=== PATIENT | male | born 1960 | race Caucasian/White ===

== ENCOUNTER 2022-12-22 09:45 | Outpatient (REF) | payer MEDICARE, MEDICAID, SELFPAY | END 2022-12-22 09:46 | disposition home or self-care (01) | LOC: HO.BBR 09:45 | PROVIDERS: Visit Provider Internal Medicine Hematology & Oncology | DX: Z13.89 Encounter for screening for other disorder (principal) ==

== ENCOUNTER 2022-12-30 13:50 | Outpatient (REF) | payer MEDICARE, MEDICAID, SELFPAY | END 2022-12-30 13:51 | disposition home or self-care (01) | LOC: HO.BBR 13:50 | PROVIDERS: Visit Provider Internal Medicine Hematology & Oncology | DX: Z13.89 Encounter for screening for other disorder (principal) ==

== ENCOUNTER 2023-01-09 13:02 | Outpatient (REF) | payer MEDICARE, MEDICAID, SELFPAY | END 2023-01-09 13:03 | disposition home or self-care (01) | LOC: HO.BBR 13:02 | PROVIDERS: Visit Provider Internal Medicine Hematology & Oncology | DX: Z13.89 Encounter for screening for other disorder (principal) ==

== ENCOUNTER 2023-01-23 13:00 | Outpatient (REF) | payer MEDICARE, MEDICAID, SELFPAY | END 2023-01-23 13:01 | disposition home or self-care (01) | LOC: HO.BBR 13:00 | PROVIDERS: Visit Provider Internal Medicine Hematology & Oncology | DX: Z13.89 Encounter for screening for other disorder (principal) ==

== ENCOUNTER 2023-02-07 10:55 | Outpatient (REF) | payer MEDICARE, MEDICAID, SELFPAY | END 2023-02-07 10:56 | disposition home or self-care (01) | LOC: HO.BBR 10:55 | PROVIDERS: Visit Provider Internal Medicine Hematology & Oncology | DX: Z13.89 Encounter for screening for other disorder (principal) ==

== ENCOUNTER 2023-02-21 12:14 | Outpatient (REF) | payer MEDICARE, MEDICAID, SELFPAY | END 2023-02-21 12:15 | disposition home or self-care (01) | LOC: HO.BBR 12:14 | PROVIDERS: Visit Provider Internal Medicine Hematology & Oncology | DX: Z13.89 Encounter for screening for other disorder (principal) ==

== ENCOUNTER 2023-03-08 12:05 | Outpatient (REF) | payer MEDICARE, MEDICAID, SELFPAY | END 2023-03-08 12:06 | disposition home or self-care (01) | LOC: HO.BBR 12:05 | PROVIDERS: Visit Provider Internal Medicine Hematology & Oncology | DX: Z13.89 Encounter for screening for other disorder (principal) ==

== ENCOUNTER 2023-03-22 12:50 | Outpatient (REF) | payer MEDICARE, MEDICAID, SELFPAY | END 2023-03-22 12:51 | disposition home or self-care (01) | LOC: HO.BBR 12:50 | PROVIDERS: Visit Provider Internal Medicine Hematology & Oncology | DX: Z13.89 Encounter for screening for other disorder (principal) ==